=== PATIENT | female | born 1960 ===

== ENCOUNTER 2018-02-18 08:16 | Outpatient (CLI) | payer OTHER ==
[~2018-02-18] VITALS: Ht 167.6 cm; Wt 124.7 kg
== END 2018-02-18 08:30 | disposition home or self-care (01) ==
LOC: EDSEX 08:16 → OFIC 805 08:16
DX: H93.11 Tinnitus, right ear (principal); H90.41 Sensorineural hearing loss, unilateral, right ear, with unrestricted hearing on the contralateral side; H60.591 Other noninfective acute otitis externa, right ear; H61.21 Impacted cerumen, right ear

== ENCOUNTER 2018-02-18 10:01 | Outpatient (CLI) | payer OTHER | END 2018-02-18 10:08 | disposition home or self-care (01) | LOC: LAB 10:01 | DX: H61.311 Acquired stenosis of right external ear canal secondary to trauma (principal) ==